=== PATIENT | male | born 1960 | race Caucasian/White ===

== ENCOUNTER 2017-01-19 23:33 | Emergency (ER) | payer SELFPAY ==
[~2017-01-19] VITALS: Ht 172.7 cm; Wt 77.3 kg
[2017-01-20 01:08] LABS: BLOOD UREA NITROGEN 5 mg/dL (7-18)
[2017-01-20 01:11] LABS: HEMATOCRIT 33.8 % (39.2-51.8); HEMOGLOBIN 10.9 g/dL (13.7-18.0); WHITE BLOOD COUNT 6.2 x10^3/uL (3.4-10)
[2017-01-20 01:13] LABS: IS PT STATUS REG ER OR PRE ER? YES
[2017-01-20 06:41] VITALS: BP 120/76
== END 2017-01-20 07:19 | disposition home or self-care (01) ==
LOC: ED 23:59
DX: F10.229 Alcohol dependence with intoxication, unspecified (principal); F19.10 Other psychoactive substance abuse, uncomplicated; R07.89 Other chest pain; W19.XXXA Unspecified fall, initial encounter; Y93.89 Activity, other specified; Y99.8 Other external cause status; Y92.89 Other specified places as the place of occurrence of the external cause
CPT/HCPCS: 36415; 70450; 71010; 80048; 82040; 84484; 85025; 93005; 99285

== ENCOUNTER 2017-05-05 16:13 | Inpatient (IN) | payer MEDICAID ==
[~2017-05-05] VITALS: Ht 175.3 cm; Wt 81.7 kg
[2017-05-05] MEDS ORDERED: SODIUM CHLORIDE 0.9% 1,000 ML IV ONE (16:42)
[2017-05-05] MEDS ORDERED: NITROGLYCERIN SINGLE TAB 0.4 MG SL PRN (17:00)
[2017-05-05] MEDS ORDERED: SODIUM CHLORIDE FLUSH 10ML SYR IVF ONE (17:00)
[2017-05-05] MEDS ORDERED: SODIUM CHLORIDE 0.9% 1,000ML IVBOLUS ONE (17:00)
[2017-05-05] MEDS ORDERED: ONDANSETRON 2MG/ML, 2ML IVPush ONE (17:00)
[2017-05-05 17:22] LABS: BLOOD UREA NITROGEN 7 mg/dL (7-18); HEMATOCRIT 37.2 % (39.2-51.8); HEMOGLOBIN 12.2 g/dL (13.7-18.0); WHITE BLOOD COUNT 3.5 x10^3/uL (3.4-10)
[2017-05-05 17:28] LABS: ASPARTATE AMINO TRANSFERASE 179 U/L (15-37)
[2017-05-05 17:31] LABS: IS PT STATUS REG ER OR PRE ER? YES
[2017-05-05 17:38] LABS: DIFF TOTAL CELLS COUNTED 100 CELL DIFF
[2017-05-05 17:41] LABS: ANISOCYTOSIS 1+; VERIFY COUNTS? YES
[2017-05-05] MEDS ORDERED: LORazepam 2 MG/ML, 1ML ONE ×2 (20:15→20:40)
[2017-05-05] MEDS: LORazepam 2 MG/ML, 1ML IVPush PRN ×3 (20:17→23:02)
[2017-05-05] MEDS ORDERED: ENALAPRILAT 1.25 MG/ML, 2ML IVPush PRN (20:30)
[2017-05-05] MEDS ORDERED: SODIUM CHLORIDE FLUSH 10ML SYR IVF PRN (20:30)
[2017-05-05] MEDS ORDERED: THIAMINE 100 MG, MVI ADULT 10 ML, FOLIC ACID 1 MG in D5%-0.9% NACL 1,000 ML IV SCH (20:30)
[2017-05-05] MEDS ORDERED: DOCUSATE 100 MG CAPSULE PO PRN (20:30)
[2017-05-05] MEDS ORDERED: morphine SULFATE 10 MG/ML, 1ML IVPush PRN (20:30)
[2017-05-05] MEDS ORDERED: ONDANSETRON 2MG/ML, 2ML IVPush PRN (20:30)
[2017-05-05 21:38] VITALS: BP 106/68
[2017-05-05] MEDS: THIAMINE 100 MG, MVI ADULT 10 ML, FOLIC ACID 1 MG in D5%-0.9% NACL 1,000 ML IV SCH (21:43)
[2017-05-05] MEDS: HEPARIN 5,000 UNITS/ML, 1ML SQ SCH (21:43)
[2017-05-05 21:50] VITALS: BP 106/68
[2017-05-05 23:40] LABS: IS PT STATUS REG ER OR PRE ER? NO
[2017-05-06 00:12] VITALS: BP 109/71
[2017-05-06] MEDS: LORazepam 2 MG/ML, 1ML IVPush PRN ×6 (03:58→21:34)
[2017-05-06 04:57] LABS: HEMATOCRIT 33.8 % (39.2-51.8); HEMOGLOBIN 11.1 g/dL (13.7-18.0); WHITE BLOOD COUNT 3.2 x10^3/uL (3.4-10)
[2017-05-06 05:07] LABS: BLOOD UREA NITROGEN 6 mg/dL (7-18); IS PT STATUS REG ER OR PRE ER? NO
[2017-05-06 05:49] LABS: DIFF TOTAL CELLS COUNTED 100 CELL DIFF
[2017-05-06 05:52] LABS: ANISOCYTOSIS 1+; VERIFY COUNTS? YES
[2017-05-06] MEDS: HEPARIN 5,000 UNITS/ML, 1ML SQ SCH ×3 (06:05→21:30)
[2017-05-06 07:42] VITALS: BP 136/81
[2017-05-06] MEDS ORDERED: REGADENOSON 0.4 MG/5 ML SYRINGE ONE (07:45)
[2017-05-06] MEDS ORDERED: KETOROLAC 30 MG/1 ML IVPush PRN (12:00)
[2017-05-06] MEDS ORDERED: KETOROLAC 30 MG/1 ML ONE (12:07)
[2017-05-06 13:23] VITALS: BP 141/91
[2017-05-06] MEDS: BACLOFEN 10 MG TABLET PO SCH ×2 (16:00→21:34)
[2017-05-06 20:30] VITALS: BP 139/90
[2017-05-06] MEDS ORDERED: LORazepam 2 MG/ML, 1ML ONE (21:29)
[2017-05-06] MEDS: THIAMINE 100 MG, MVI ADULT 10 ML, FOLIC ACID 1 MG in D5%-0.9% NACL 1,000 ML IV SCH (22:06)
[2017-05-07 02:35] VITALS: BP 154/98
[2017-05-07] MEDS: LORazepam 2 MG/ML, 1ML IVPush PRN ×5 (03:49→22:09)
[2017-05-07] MEDS: HEPARIN 5,000 UNITS/ML, 1ML SQ SCH ×3 (05:39→22:08)
[2017-05-07 05:42] LABS: ASPARTATE AMINO TRANSFERASE 84 U/L (15-37); BLOOD UREA NITROGEN 9 mg/dL (7-18)
[2017-05-07 06:48] LABS: HEMATOCRIT 36.9 % (39.2-51.8); WHITE BLOOD COUNT 4.5 x10^3/uL (3.4-10)
[2017-05-07 07:00] LABS: DIFF TOTAL CELLS COUNTED 100 CELL DIFF
[2017-05-07 07:03] LABS: ANISOCYTOSIS 1+; TARGET CELLS 1+; VERIFY COUNTS? YES
[2017-05-07 07:04] LABS: LARGE PLATELETS 1+; SPHEROCYTES 1+
[2017-05-07 08:33] VITALS: BP 146/91
[2017-05-07] MEDS: BACLOFEN 10 MG TABLET PO SCH ×3 (08:52→22:08)
[2017-05-07 14:25] VITALS: BP 141/99
[2017-05-07 20:00] VITALS: BP 131/95
[2017-05-07] MEDS: THIAMINE 100 MG, MVI ADULT 10 ML, FOLIC ACID 1 MG in D5%-0.9% NACL 1,000 ML IV SCH (22:09)
[2017-05-08 00:53] VITALS: BP 132/89
[2017-05-08] MEDS: LORazepam 2 MG/ML, 1ML IVPush PRN ×2 (04:33→09:16)
[2017-05-08] MEDS: HEPARIN 5,000 UNITS/ML, 1ML SQ SCH (05:54)
[2017-05-08 06:42] LABS: HEMOGLOBIN 12.1 g/dL (13.7-18.0); WHITE BLOOD COUNT 4.2 x10^3/uL (3.4-10)
[2017-05-08 06:43] LABS: ASPARTATE AMINO TRANSFERASE 85 U/L (15-37); BLOOD UREA NITROGEN 10 mg/dL (7-18)
[2017-05-08 06:44] LABS: DIFF TOTAL CELLS COUNTED 100 CELL DIFF
[2017-05-08 06:45] LABS: ANISOCYTOSIS 1+; VERIFY COUNTS? YES
[2017-05-08 06:47] LABS: HYPOCHROMIA 1+; TARGET CELLS 2+
[2017-05-08 08:15] VITALS: BP 135/90
[2017-05-08] MEDS: BACLOFEN 10 MG TABLET PO SCH (09:16)
== END 2017-05-08 10:30 | disposition home or self-care (01) | DRG 897 ==
LOC: ED 20:17 → EDIP 20:18 → INTOOBSV 20:18 → 5SO 21:16 → 3NE 05-06 13:42 → OBSVTOIN 05-07 10:40
PROVIDERS: ADMIT Family Medicine; ATTEND Family Medicine
DX: F10.239 Alcohol dependence with withdrawal, unspecified (principal); F10.229 Alcohol dependence with intoxication, unspecified; K70.10 Alcoholic hepatitis without ascites; H54.62 Unqualified visual loss, left eye, normal vision right eye; R07.89 Other chest pain; I10 Essential (primary) hypertension; Z59.0 Homelessness; Z76.5 Malingerer [conscious simulation]; Z81.1 Family history of alcohol abuse and dependence; I25.2 Old myocardial infarction; Z88.6 Allergy status to analgesic agent
CPT/HCPCS: 36415; 71010; 78452; 80048; 80053; 80307; 83735; 83880; 84484; 85025; 85610; 85730; 93005; 93017; 93306; 96361; 96374; G0378; J1644; J2785; J3411; J7042; A9502; C9898; G0479; J2060; J7030